=== PATIENT | female | born 1980 | race American Indian/Alaskan Native ===

== ENCOUNTER 2017-04-14 06:29 | Emergency (ER) | payer SELFPAY ==
[2017-04-14 06:50] VITALS: BP 120/85
[2017-04-14 07:28] LABS: Anion Gap 15 mmol/L; BUN/Creatinine Ratio 18.57; Blood Urea Nitrogen 13 mg/dL (7-17); Calcium 9.1 mg/dL (8.4-10.2); Carbon Dioxide 32 mmol/L (22-30); Glucose 109 mg/dL (65-100); Potassium 3.3 mmol/L (3.6-5.0); Sodium 145 mmol/L (137-145)
[2017-04-14 07:31] LABS: Eosinophils % (Auto) 2.2 % (0.0-4.3); Hematocrit 36.1 % (30.3-42.9); Hemoglobin 11.8 gm/dl (10.1-14.3); Mean Corpuscular HGB Conc 33 % (30-34); Mean Corpuscular Hemoglobin 31 pg (28-32); Mean Corpuscular Volume 93 fl (79-97); Platelet Count 346 K/mm3 (140-440); Red Blood Count 3.88 M/mm3 (3.65-5.03); White Blood Count 6.2 K/mm3 (4.5-11.0)
== END 2017-04-14 06:58 | disposition left against medical advice (07) ==
LOC: ED 06:29
DX: R07.9 Chest pain, unspecified (principal); Z53.21 Procedure and treatment not carried out due to patient leaving prior to being seen by health care provider
CPT/HCPCS: 36415; 80048; 84484; 85025; 93005; 93010

== ENCOUNTER 2018-04-11 22:00 | Emergency (ER) | payer SELFPAY ==
[2018-04-11 22:31] VITALS: BP 126/75
--- NOTE | 2018-04-12 01:58 | Emergency Department Report ---
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 Patient reports that a knife fail to the ground and went through a rubber shoe patient reports at that time blood was squirting but has gotten an control. Patient reports pain but is durable. ED Review of Systems ROS: Stated complaint: PUNCTURE RIGHT FOOT Other details as noted in HPI Skin: other (cut to right foot) ED Past Medical Hx - Past Medical History Previous Medical History?: No - Surgical History Past Surgical History?: No - Social History Smoking Status: Never Smoker Substance Use Type: Alcohol, Non Opiate Pain - Medications Home Medications: Home Medications Medication Instructions Recorded Confirmed Last Taken Type HYDROcodone/APAP 5-325 [[place] 1 each PO Q6HR PRN #20 tablet 10/09/13 Unknown Rx 5/325 mg] Ibuprofen [Motrin] 800 mg PO TID PRN #50 tablet 10/09/13 Unknown Rx Penicillin Vk [Veetids TAB] 500 mg PO QID #40 tablet 10/09/13 Unknown Rx Laceration Physical Exam - Exam General: Vital signs noted. No distress. Alert and acting appropriately. Wound Length (cm): 1 (right lateral dorsum) Laceration Location: Lower Extremity (right lateral dorsum) Laceration Exam: Yes Normal Distal CMS, No Foreign Body, No Exposed Tendon, Vessel, or Nerve, No Tendon Injury ED Course Vital Signs 04/11/18 22:20 Temperature 98.7 F Pulse Rate 82 Respiratory 18 Rate Blood Pressure 126/75 O2 Sat by Pulse 98 Oximetry - Laceration /Wound Repair Right Upper Foot Wound Location: lower extremity Wound Length (cm): 1 (right dorsum lateral dorsum) Wound's Depth, Shape: superficial, linear Wound Explored: no foreign body removed Irrigated w/ Saline (ccs): 15 Betadine Prep?: Yes Wound Repaired With: Dermabond Sterile Dressing Applied?: Yes Progress: Tolerated procedure well Critical care attestation.: If time is entered above; I have spent that time in minutes in the direct care of this critically ill patient, excluding procedure time. ED Disposition Clinical Impression: Laceration of foot Qualifiers: Encounter type: initial encounter Laterality: right Qualified Code(s): S91.311A - Laceration without foreign body, right foot, initial encounter Disposition: DC-01 TO HOME OR SELFCARE Is pt being admited?: No Does the pt Need Aspirin: No Condition: Stable Instructions: Laceration (ED), Skin Adhesive Care (ED) Additional Instructions: Please keep wound clean and dry. Do not pick the adhesive glue. Referrals: PRIMARY CARE,MD [Primary Care Provider] - 3-5 Days Forms: Work/School Release Form(ED), Accompanied Note
== END 2018-04-12 01:52 | disposition home or self-care (01) ==
LOC: ED 22:00
DX: S91.311A Laceration without foreign body, right foot, initial encounter (principal); W26.0XXA Contact with knife, initial encounter; Y93.89 Activity, other specified; Y99.8 Other external cause status; Y92.89 Other specified places as the place of occurrence of the external cause